=== PATIENT | female | born 1955 | race Caucasian/White ===

== ENCOUNTER 2024-02-18 18:10 | Inpatient (IN) | payer OTHER ==
[~2024-02-18] VITALS: Ht 157.5 cm; Wt 79.5 kg
[2024-02-18] MEDS: ALBUTEROL SULF 2.5 MG/0.5ML(0.5%) NEB SOLN NEB ONE ×2 (19:28→19:58)
[2024-02-18] MEDS: IPRATROPIUM BROM 0.5 MG/2.5ML INH SOL NEB ONE ×2 (19:28→19:58)
[2024-02-18 19:31] LABS: Basophils # (auto) 0.1 10 ^3/uL (0-0.2); Basophils % (auto) 0.7 % (0.0-2.0); Eosinophils # (auto) 0.4 10 ^3/uL (0-0.8); Eosinophils % (auto) 3.4 % (0.0-7.0); Hematocrit 45.2 % (36.0-46.0); Hemoglobin 15.3 g/dL (12.2-16.2); Lymphocytes # (auto) 5.3 10 ^3/uL (0.4-5.4); Lymphocytes % (auto) 41.3 % (10.0-50.0); Mean Corpuscular Hemoglobin 31.2 pg (28.0-32.0); Mean Corpuscular Hgb Conc. 33.8 g/dL (32.0-36.0); Mean Corpuscular Volume 92.1 fL (80.0-100.0); Monocytes # (auto) 1.2 10 ^3/uL (0-1.3); Monocytes % (auto) 9.4 % (0.0-12.0); Neutrophils # (auto) 5.8 10 ^3/uL (1.6-8.6); Neutrophils % (auto) 45.2 % (37.0-80.0); Nucleated Red Blood Cells % 0.1 %; Red Blood Cells 4.91 10^6/uL (4.0-5.20); Red Cell Distribution Width 13.7 % (11.8-14.3); White Blood Cell 12.8 10^3/uL (4.4-10.8)
[2024-02-18 19:32] LABS: Chloride 103 mmol/L (98-107); Potassium 4.3 mmol/L (3.5-5.1); Sodium 137 mmol/L (136-145)
[2024-02-18 19:33] LABS: Anion Gap 9 (5-15); Carbon Dioxide 25 mmol/L (20-30)
[2024-02-18 19:34] LABS: Calcium 10.2 mg/dL (8.5-10.1)
[2024-02-18 19:38] LABS: BUN/Creatinine Ratio 16.2 (10.0-20.0); Blood Urea Nitrogen 19 mg/dL (9-23); Glucose 226 mg/dL (74-106)
[2024-02-18] MEDS ORDERED: hydrALAZINE HCL 20 MG/ML VL IV PRN (20:30)
[2024-02-18] MEDS ORDERED: IPRATROPIUM BROM 0.5 MG/2.5ML INH SOL NEB PRN (20:30)
[2024-02-18] MEDS ORDERED: ALBUTEROL SULF 2.5 MG/0.5ML(0.5%) NEB SOLN NEB PRN (20:30)
[2024-02-18] MEDS: predniSONE 20 MG TAB PO ONE (20:35)
[2024-02-18] MEDS: SODIUM CHLORIDE 0.9% 1,000 ML IV SCH (20:58)
[2024-02-18] MEDS: cefTRIAXone 1GM/50ML D5W 50 ML IV ONE (20:58)
[2024-02-18 21:11] VITALS: PULSE 113; RESP 20; O2SAT 99
[2024-02-18] MEDS: AZITHROMYCIN 500MG/ 250ML 250 ML IV ONE (21:17)
[2024-02-18 21:23] LABS: Triglycerides 530 mg/dL (< 150)
[2024-02-18 21:25] LABS: Cholesterol 284 mg/dL (< 200); HDL Cholesterol 53 mg/dL (40-59)
[2024-02-18] MEDS: IPRATROPIUM BROM 0.5 MG/2.5ML INH SOL NEB SCH (22:00)
[2024-02-18] MEDS: ALBUTEROL SULF 2.5 MG/0.5ML(0.5%) NEB SOLN NEB SCH (22:00)
[2024-02-18] MEDS: methylPREDNISolone SOD SUCC 125 MG/2 ML VL IV SCH (23:25)
[2024-02-19] VITALS (17 sets, daily range): BP systolic 117–151; BP diastolic 70–90; PULSE 83–133; RESP 17–23; TEMP 97.3–97.7; O2SAT 90–99
[2024-02-19 05:42] LABS: Chloride 103 mmol/L (98-107); Potassium 4.1 mmol/L (3.5-5.1); Sodium 136 mmol/L (136-145)
[2024-02-19 05:43] LABS: Anion Gap 12 (5-15); Calcium 9.9 mg/dL (8.5-10.1); Carbon Dioxide 21 mmol/L (20-30)
[2024-02-19 05:44] LABS: Basophils # (auto) 0 10 ^3/uL (0-0.2); Basophils % (auto) 0.2 % (0.0-2.0); Eosinophils # (auto) 0 10 ^3/uL (0-0.8); Eosinophils % (auto) 0.1 % (0.0-7.0); Hematocrit 45.4 % (36.0-46.0); Lymphocytes # (auto) 1.7 10 ^3/uL (0.4-5.4); Lymphocytes % (auto) 16.7 % (10.0-50.0); Mean Corpuscular Hemoglobin 31.4 pg (28.0-32.0); Mean Corpuscular Hgb Conc. 33.2 g/dL (32.0-36.0); Mean Corpuscular Volume 94.7 fL (80.0-100.0); Monocytes # (auto) 0.1 10 ^3/uL (0-1.3); Monocytes % (auto) 0.8 % (0.0-12.0); Neutrophils # (auto) 8.2 10 ^3/uL (1.6-8.6); Neutrophils % (auto) 82.2 % (37.0-80.0); Nucleated Red Blood Cells % 0.1 %; Red Blood Cells 4.79 10^6/uL (4.0-5.20); Red Cell Distribution Width 13.7 % (11.8-14.3)
[2024-02-19 05:48] LABS: BUN/Creatinine Ratio 9.4 (10.0-20.0); Blood Urea Nitrogen 10 mg/dL (9-23); Glucose 271 mg/dL (74-106)
[2024-02-19] MEDS: cefTRIAXone 1GM/50ML D5W 50 ML IV SCH (09:55)
[2024-02-19] MEDS: AZITHROMYCIN 500MG/ 250ML 250 ML IV SCH (09:56)
[2024-02-19] MEDS: ENOXAPARIN SOD 30 MG/0.3 ML SYRINGE SC SCH (10:00)
[2024-02-19] MEDS ORDERED: ALBU108A5 PO (10:56)
[2024-02-19] MEDS ORDERED: THROAT LOZENGES(CEPASTAT) MT PRN (15:15)
[2024-02-19] MEDS: MAGNESIUM SULFATE 1GM/100ML 100 ML IV ONE (16:20)
[2024-02-19] MEDS: MELATONIN 5 MG TAB PO ONE (21:05)
[2024-02-19] MEDS: methylPREDNISolone SOD SUCC 125 MG/2 ML VL IV SCH (21:06)
[2024-02-19] MEDS: DOXYCYCLINE 100 MG TAB/CAP PO SCH (21:06)
[2024-02-19] MEDS: BUDESONIDE (INHALATION) 0.5 MG/2 ML NEB NEB SCH (22:55)
[2024-02-20] VITALS (13 sets, daily range): BP systolic 121–141; BP diastolic 76–82; PULSE 95–111; RESP 8–23; TEMP 97.8–98.7; O2SAT 90–100
[2024-02-20 05:19] LABS: Hematocrit 42.4 % (36.0-46.0); Hemoglobin 14.1 g/dL (12.2-16.2); Mean Corpuscular Hgb Conc. 33.3 g/dL (32.0-36.0); Mean Corpuscular Volume 93.4 fL (80.0-100.0); Red Blood Cells 4.54 10^6/uL (4.0-5.20); Red Cell Distribution Width 13.7 % (11.8-14.3); White Blood Cell 27.1 10^3/uL (4.4-10.8)
[2024-02-20 05:29] LABS: Calcium 10.3 mg/dL (8.5-10.1); Chloride 104 mmol/L (98-107); Potassium 4.7 mmol/L (3.5-5.1); Sodium 137 mmol/L (136-145)
[2024-02-20 05:30] LABS: Anion Gap 9 (5-15); Carbon Dioxide 24 mmol/L (20-30)
[2024-02-20 05:35] LABS: BUN/Creatinine Ratio 16.8 (10.0-20.0); Blood Urea Nitrogen 16 mg/dL (9-23); Glucose 271 mg/dL (74-106)
[2024-02-20 05:53] LABS: Band Neutrophils % (manual) 0; Basophils % (manual) 0 (0.0-2.0); Blast Cells 0; Eosinophils % (manual) 0 (0-7); Metamyelocytes % 0; Myelocytes % 0; Promyelocytes % 0; Reactive Lymphocytes 0
[2024-02-20 06:51] LABS: Lymphocytes % (manual) 10 (10.0-50.0); Monocytes % (manual) 5 (0-12); Platelet Estimate Adequate
[2024-02-20] MEDS ORDERED: ACETAMINOPHEN 500 MG TAB PO PRN (11:45)
[2024-02-20] MEDS ORDERED: MORPHINE SULFATE INJ 2 MG/ml SYRG IV PRN (11:45)
[2024-02-20] MEDS ORDERED: HYDROcodone-ACET 5/325MG TAB PO PRN (11:45)
[2024-02-20] MEDS ORDERED: ONDANSETRON HCL 4 MG/2 ML VIAL IV PRN (11:45)
[2024-02-20] MEDS: KETOROLAC TROMETH 30 MG/ML 1ML VIAL IV ONE (13:37)
[2024-02-20] MEDS: guaiFENesin-CODEINE Liq 5 ML UD PO PRN (13:55)
[2024-02-20] MEDS: IPRATROPIUM BROM 0.5 MG/2.5ML INH SOL NEB SCH (19:11)
[2024-02-20] MEDS: ALBUTEROL SULF 2.5 MG/0.5ML(0.5%) NEB SOLN NEB SCH (19:11)
[2024-02-20] MEDS: ATORVASTATIN 20 MG TAB PO SCH (21:39)
[2024-02-21] VITALS (9 sets, daily range): BP systolic 124–143; BP diastolic 78–89; PULSE 79–107; RESP 14–20; TEMP 36.9; O2SAT 94–99
[2024-02-21] MEDS ORDERED: PRED20TA2 PO (11:19)
[2024-02-21] MEDS ORDERED: ATOR-47 PO (11:19)
[2024-02-21] MEDS ORDERED: DOXY-267 PO (11:19)
== END 2024-02-21 15:20 | disposition home or self-care (01) | DRG 177 ==
LOC: ER 18:10 → OVERFLOW 20:23 → WEST WING 02-19 10:30
PROVIDERS: ADMIT Registered Nurse; ATTEND Nurse Practitioner Acute Care
DX: J15.69 Pneumonia due to other Gram-negative bacteria (principal); J96.01 Acute respiratory failure with hypoxia; J44.0 Chronic obstructive pulmonary disease with (acute) lower respiratory infection; J44.1 Chronic obstructive pulmonary disease with (acute) exacerbation; N17.9 Acute kidney failure, unspecified; N18.32 Chronic kidney disease, stage 3b; E66.9 Obesity, unspecified; Z68.31 Body mass index [BMI] 31.0-31.9, adult; D72.829 Elevated white blood cell count, unspecified; E78.5 Hyperlipidemia, unspecified; E78.00 Pure hypercholesterolemia, unspecified; I27.20 Pulmonary hypertension, unspecified; Z87.891 Personal history of nicotine dependence; J15.9 Unspecified bacterial pneumonia
CPT/HCPCS: 36415; 71045; 80048; 80061; 83036; 83880; 84443; 84484; 85007; 85025; 85027; 87040; 93005; 94640; 96365; 99291; G0378; J1885